=== PATIENT | male | born 1985 | race Caucasian/White ===

== ENCOUNTER 2024-09-24 08:44 | Outpatient (CLI) | payer OTHER, SELFPAY ==
--- NOTE | ~2024-09-24 | US_ITS ---
EXAMINATION: US soft tissue head and neck DATE: 09/24/2024 08:59 INDICATION: Left neck lump. Other specified symptoms and signs. TECHNIQUE: Multiple grayscale and Doppler ultrasound images of the head and neck were obtained. COMPARISON: None FINDINGS: There are normal lymph nodes in the left neck in the patient's area of concern. IMPRESSION: 1. No abnormal neck mass or lymphadenopathy. Reviewed, dictated and finalized at location A. [employer]ING ASSISTANT
== END 2024-09-24 08:45 | disposition home or self-care (01) ==
LOC: GOSHIMG 08:45
PROVIDERS: PCP Family Medicine; Visit Provider Nurse Practitioner
DX: R09.89 Other specified symptoms and signs involving the circulatory and respiratory systems (principal)
CPT/HCPCS: 76536